=== PATIENT | female | born 1970 | race Caucasian/White ===

== ENCOUNTER 2018-03-04 07:04 | Day surgery (SDC) | payer OTHER ==
[2018-03-03 13:56] VITALS: BMI 25.1
[2018-03-04] MEDS ORDERED: ceFAZolin SODIUM 1 GM VIAL ONE (09:54)
[2018-03-04] MEDS ORDERED: PROPOFOL 20 ML ONE ×5 (09:54)
[2018-03-04] MEDS ORDERED: MIDAZOLAM HCL 2 MG/2 ML SINGLE DOSE VIAL ONE ×2 (09:55)
[2018-03-04] MEDS ORDERED: LIDOCAINE HCL 0.5%, 5 MG/ML (50mL SDVIAL) ONE (10:03)
[2018-03-04] MEDS ORDERED: BUPIVACAINE HCL/PF 0.5% (5MG/ML) 10 ML VIAL ONE (10:03)
[2018-03-04] MEDS ORDERED: LIDOCAINE HCL 2% JELLY (5 ML/TUBE) ONE (10:05)
[2018-03-04] MEDS ORDERED: BUPIVACAINE HCL/PF 0.5% (5MG/ML) 10 ML VIAL IJ ONE (10:24)
[2018-03-04] MEDS ORDERED: LIDOCAINE HCL 0.5%, 5 MG/ML (50mL SDVIAL) PNB ONE (10:24)
[2018-03-04] MEDS ORDERED: KETOROLAC TROMETHAMINE 30 MG/1 ML VIAL ONE (10:54)
[2018-03-04] MEDS ORDERED: DEXAMETHASONE SOD PHOSPHATE 4 MG/1 ML VIAL ONE (10:56)
[2018-03-04] MEDS ORDERED: ONDANSETRON 4 MG/2 ML VIAL IVPUSH PRN (11:22)
[2018-03-04] MEDS ORDERED: LACTATED RINGERS SOLUTION 1,000 ML IV SCH (11:30)
--- NOTE | 2018-03-04 11:44 | OP ---
Operative Note - Note: Operative Date: 03/04/18 Pre-Operative Diagnosis: subungual exostosis left hallux Operation: subungual exostectomy left hallux with total nail avulsion. Findings: subungual exostectomy left big toe Post-Operative Diagnosis: Same as Pre-op Surgeon: Isra Griffin Anesthesia: Local, MAC Specimens Removed: bone and nail Estimated Blood Loss (mls): 5 Operative Report Dictated: Yes
[2018-03-04 12:09] VITALS: TEMP 98.2
[2018-03-04 13:35] VITALS: BP 146/93; PULSE 77
--- NOTE | 2018-03-05 18:37 | PATH ---
Surgical Pathology Report Patient Name: BRAYDEN FRANCOIS [facility]. Rec. #: [id number] /Age/Gender: 1970 (Age: 47) / F Account: [id number] Location: [facility] SURGICAL Taken: 03/04/2018 Received: 03/04/2018 Reported: 03/05/2018 Physicians: Isra Griffin DPM Specimen(s) Received NAIL FROM LEFT GREAT TOE Clinical History Bone spur left foot Final Diagnosis GREAT TOE, LEFT, NAIL, EXCISION: PORTION OF NAIL PLATE AND BED WITHOUT SIGNIFICANT PATHOLOGIC FINDINGS. FUNGAL PAS STAIN IS NEGATIVE Electronically Signed Halye Gupta M.D. Gross Description Received fresh labeled "toenail left foot," is a 2.0 x 1.7 x 0.1 cm valenzuela portion of unguis. [employer] M[employer] Architect sections are submitted in one cassette. /03/04/2018 saudi/03/04/2018
--- NOTE | 2018-03-09 11:34 | OP ---
DATE OF OPERATION: 03/04/2018 PREOPERATIVE DIAGNOSIS: Exostosis, distal phalanx, left hallux. POSTOPERATIVE DIAGNOSIS: Exostosis, distal phalanx, left hallux. PROCEDURE: Exostectomy of distal phalanx of left hallux. ANESTHESIA: IV MAC with local. ESTIMATED BLOOD LOSS: 2 mL HEMOSTASIS: Pneumatic left ankle tourniquet 250 mmHg. The patient was brought to the operating room and placed supine on the operating room table. After adequate IV sedation was administered. At this time, a local infiltrative block consisting of 1:1 mixture of 2% lidocaine plain and 0.5 % Marcaine plain was administered to the left hallux digital block with a total of 6 mL administered. the left hallux hallucal nail was removed using freer and hemostat and passed from the field. The left foot was then prepped, scrubbed, and draped in the usual aseptic technique. Following exsanguination, the left foot with an Esmarch bandage and placement of padding at the ankle, the pneumatic ankle tourniquet was inflated to 250 mmHg. Surgery began in the following manner. Attention was then directed to the dorsal aspect of the left hallux. At this time, using a 15 blade, a longitudinal incision measuring approximately 3 cm in length was made directly over the prominence. The incision was deepened through the subcutaneous tissue sharply and bluntly with care taken to identify and retract all vital neural and vascular structures. After the bone had been sufficiently exposed, the prominence was excised from the operative site using a sagittal saw. All rough edges were then smoothed down using a bone rasp. Correction of the deformity was assessed at this time and noted to be in good condition. The surgical site was then copiously irrigated with bacitracin/normal saline mix. The skin edges were reapproximated using 4-0 nylon. Compressive dressing was then applied utilizing telfa pad, Betadine-soaked Adaptic, 4 x 4's, sterile Jennifer, and John wrap. The pneumatic ankle tourniquet was deflated, and prompt hyperemic response was then noted to the left foot. The patient tolerated the above anesthesia and surgical procedure well and left the operating room to the recovery area with vital signs stable and vascular status intact to the left foot. CITLALI Zamora/[id number] MTDD
== END 2018-03-04 15:03 | disposition home or self-care (01) ==
LOC: JASU-SURG 07:04
PROVIDERS: ATTEND Podiatrist Foot Surgery
PROC: 0QBR0ZZ Excision of Left Toe Phalanx, Open Approach (ICD-10-PCS; principal; 2018-03-04 09:00)
DX: M25.70 Osteophyte, unspecified joint (principal)
CPT/HCPCS: 73630-TC-LT; 84703; 88300-TC; 88312-TC; 94760